=== PATIENT | male | born 1985 | race African-American/Black ===

== ENCOUNTER 2019-06-07 21:10 | Emergency (ER) | payer MEDICAID ==
[~2019-06-07] VITALS: Ht 172.7 cm; Wt 66.0 kg
[2019-06-07] MEDS ORDERED: KETOROLAC 60MG/2ML VIAL IM ONE (22:15)
[2019-06-07 22:45] VITALS: BP 120/66
== END 2019-06-07 23:55 | disposition home or self-care (01) ==
LOC: ER 23:46
DX: H10.9 Unspecified conjunctivitis (principal)
CPT/HCPCS: 96372; 99283; J1885